=== PATIENT | female | born 1970 | race Caucasian/White ===

== ENCOUNTER 2016-10-25 11:39 | Inpatient (IN) | payer MEDICAID, OTHER ==
[~2016-10-25] VITALS: Ht 167.6 cm; Wt 62.0 kg
[~2016-10-25 11:39] MED LIST: DIVA500T35 PO; RISP1 PO
[2016-10-25 12:02] LABS: BASOPHILS # (AUTO) 0.04 K/uL (0.00-0.20); BASOPHILS % (AUTO) 0.8 % (0.0-2.0); EOSINOPHILS # (AUTO) 0.02 K/uL (0.00-0.70); HEMATOCRIT 38.3 % (36-46); HEMOGLOBIN 13.2 g/dL (12.0-16.0); LYMPHOCYTES # (AUTO) 1.3 K/uL (1.0-4.8); LYMPHOCYTES % (AUTO) 23.6 % (22.0-44.0); MEAN CORPUSCULAR HEMOGLOBIN 30.8 pg (26.0-34.0); MEAN CORPUSCULAR HGB CONC 34.4 G/dL (31.0-37.0); MEAN CORPUSCULAR VOLUME 89 fL (80-100); MONOCYTES # (AUTO) 0.5 K/uL (0.1-1.0); NEUTROPHILS # (AUTO) 3.8 K/uL (1.8-7.7); NEUTROPHILS % (AUTO) 67.3 % (40.0-70.0); PLATELET COUNT (AUTO) 229 K/uL (150-450); RED BLOOD CELL COUNT(AUTO) 4.28 MIL/uL (4.00-5.20); RED CELL DISTRIBUTION WIDTH 12.5 % (11.5-14.5); WHITE BLOOD COUNT (AUTO) 5.6 K/uL (4.5-11.0)
[2016-10-25 12:25] LABS: ANION GAP 8 mmol/L (8-16); CALCIUM, TOTAL 8.8 mg/dL (8.8-10.5); CARBON DIOXIDE 28 mmol/L (22-29); CHLORIDE 106 mmol/L (98-107); CREATININE 0.97 mg/dL (0.60-1.30); GLOMERULAR FILTR. RATE CALC > 60 mL/min (>60); POTASSIUM 4.4 mmol/L (3.5-5.1); SODIUM SERUM 142 mmol/L (136-145); UREA NITROGEN, BLOOD 11 mg/dL (7-18)
[2016-10-25 12:31] LABS: ALANINE AMINOTRANSFERASE 34 U/L (12-78); ASPARTATE AMINOTRANSFERASE 25 U/L (15-37); BILIRUBIN,TOTAL 0.5 mg/dL (0.1-1.0); TOTAL PROTEIN, SERUM 7.3 g/dL (6.4-8.2)
[2016-10-25 12:44] LABS: VALPROIC ACID < 3 mcg/mL (50-100)
[2016-10-25] MEDS ORDERED: ZOLPIDEM TARTRATE 10 MG TABLET PO PRN (13:30)
[2016-10-25] MEDS ORDERED: LORazepam 1 MG TABLET PO ONE (15:15)
[2016-10-25] MEDS ORDERED: INFLUENZA VIRUS VACCINE QVS 2016-17 (3YR+)/PF 60 MCG/0.5 ML SYRINGE IM ONE (17:00)
[2016-10-25] MEDS: HALOPERIDOL 5 MG TABLET PO PRN (17:09)
[2016-10-25] MEDS: LORazepam 2 MG TABLET PO PRN (17:09)
[2016-10-26 08:01] VITALS: BP 112/55
[2016-10-26] MEDS: NICOTINE 14 MG/24 HOUR PATCH TD SCH (09:00)
[2016-10-26 16:08] VITALS: BP 109/97
[2016-10-26] MEDS: RisperiDONE 1 MG TABLET PO SCH (16:47)
[2016-10-26] MEDS: HALOPERIDOL 5 MG TABLET PO PRN (16:47)
[2016-10-26] MEDS: LORazepam 2 MG TABLET PO PRN (16:47)
[2016-10-26] MEDS: DIVALPROEX SODIUM 500 MG DR TABLET PO SCH (20:54)
[2016-10-27] MEDS: NICOTINE 14 MG/24 HOUR PATCH TD SCH (09:00)
[2016-10-27] MEDS: RisperiDONE 1 MG TABLET PO SCH ×2 (09:19→16:03)
[2016-10-27] MEDS: LORazepam 2 MG TABLET PO PRN (16:03)
[2016-10-27 16:20] VITALS: BP 106/61
[2016-10-27] MEDS: DIVALPROEX SODIUM 500 MG DR TABLET PO SCH (20:08)
[2016-10-28 06:42] VITALS: BP 114/68
[2016-10-28 08:00] VITALS: BP 118/64
[2016-10-28] MEDS: NICOTINE 14 MG/24 HOUR PATCH TD SCH (09:00)
[2016-10-28] MEDS: RisperiDONE 1 MG TABLET PO SCH ×2 (09:15→16:02)
[2016-10-28 16:07] VITALS: BP 119/65
[2016-10-28] MEDS: DIVALPROEX SODIUM 500 MG DR TABLET PO SCH (20:10)
[2016-10-29 00:04] VITALS: BP 106/63
[2016-10-29 08:09] VITALS: BP 96/64
[2016-10-29] MEDS: NICOTINE 14 MG/24 HOUR PATCH TD SCH (09:33)
[2016-10-29] MEDS: RisperiDONE 1 MG TABLET PO SCH ×2 (09:33→16:10)
[2016-10-29 16:28] VITALS: BP 110/74
== END 2016-10-29 19:04 | disposition home or self-care (01) | DRG 750 ==
LOC: EMS 11:43 → B3A 15:31
PROVIDERS: ADMIT Psychiatry & Neurology Psychiatry; ATTEND Psychiatry & Neurology Psychiatry
DX: F20.0 Paranoid schizophrenia (principal); R45.851 Suicidal ideations; Z59.0 Homelessness; F32.9 Major depressive disorder, single episode, unspecified; F15.10 Other stimulant abuse, uncomplicated; F17.210 Nicotine dependence, cigarettes, uncomplicated; F10.10 Alcohol abuse, uncomplicated; Z79.899 Other long term (current) drug therapy; Z71.41 Alcohol abuse counseling and surveillance of alcoholic; Z71.6 Tobacco abuse counseling; Z71.51 Drug abuse counseling and surveillance of drug abuser; Z28.21 Immunization not carried out because of patient refusal
CPT/HCPCS: 99285; 99406; G0480

== ENCOUNTER 2017-01-01 11:05 | Emergency (ER) | payer MEDICAID, OTHER ==
[~2017-01-01] VITALS: Ht 162.6 cm; Wt 59.0 kg
[2017-01-01 11:27] VITALS: BP 116/67
[2017-01-01 11:29] LABS: BASOPHILS # (AUTO) 0.06 K/uL (0.00-0.20); BASOPHILS % (AUTO) 0.8 % (0.0-2.0); EOSINOPHILS # (AUTO) 0.02 K/uL (0.00-0.70); EOSINOPHILS % (AUTO) 0.31 % (1.0-6.0); HEMOGLOBIN 12.9 g/dL (12.0-16.0); LYMPHOCYTES # (AUTO) 1.7 K/uL (1.0-4.8); MEAN CORPUSCULAR HEMOGLOBIN 31.5 pg (26.0-34.0); MEAN CORPUSCULAR VOLUME 93 fL (80-100); MONOCYTES # (AUTO) 0.6 K/uL (0.1-1.0); MONOCYTES % (AUTO) 7.9 % (2.0-9.0); NEUTROPHILS # (AUTO) 4.9 K/uL (1.8-7.7); PLATELET COUNT (AUTO) 242 K/uL (150-450); WHITE BLOOD COUNT (AUTO) 7.3 K/uL (4.5-11.0)
[2017-01-01] MEDS ORDERED: LORazepam 2 MG TABLET PO ONE (11:30)
[2017-01-01 11:45] LABS: ANION GAP 9 mmol/L (8-16); CALCIUM, TOTAL 8.7 mg/dL (8.8-10.5); CARBON DIOXIDE 28 mmol/L (22-29); CHLORIDE 104 mmol/L (98-107); CREATININE 0.92 mg/dL (0.60-1.30); GLOMERULAR FILTR. RATE CALC > 60 mL/min (>60); POTASSIUM 3.6 mmol/L (3.5-5.1); SODIUM SERUM 141 mmol/L (136-145); UREA NITROGEN, BLOOD 15 mg/dL (7-18)
[2017-01-01 11:51] LABS: ALANINE AMINOTRANSFERASE 26 U/L (12-78); ALBUMIN 4.2 g/dL (3.4-5.0); ASPARTATE AMINOTRANSFERASE 20 U/L (15-37); BILIRUBIN,TOTAL 0.5 mg/dL (0.1-1.0); TOTAL PROTEIN, SERUM 7.3 g/dL (6.4-8.2)
[2017-01-01] MEDS: VALPROIC ACID 250 MG CAPSULE PO ONE ×2 (11:57→12:04)
[2017-01-01 12:05] LABS: VALPROIC ACID 3 mcg/mL (50-100)
[2017-01-01] MEDS ORDERED: DIVALPROEX SODIUM 250 MG DR TABLET PO ONE (12:15)
== END 2017-01-01 12:09 | disposition home or self-care (01) ==
LOC: EMS 11:10
DX: F25.9 Schizoaffective disorder, unspecified (principal); F30.9 Manic episode, unspecified; F31.9 Bipolar disorder, unspecified; F17.210 Nicotine dependence, cigarettes, uncomplicated; F15.90 Other stimulant use, unspecified, uncomplicated
CPT/HCPCS: 36415; 80053; 80164; 80307; 85025; 99285; G0480

== ENCOUNTER 2019-04-17 19:27 | Emergency (ER) | payer OTHER ==
[~2019-04-17] VITALS: Ht 162.6 cm; Wt 59.1 kg
[~2019-04-17 19:27] MED LIST changes: +DIVA-78 PO; -DIVA500T35 PO
[2019-04-17 20:03] LABS: BASOPHILS % (AUTO) 1.4 % (0.0-2.0); EOSINOPHILS % (AUTO) 2.2 % (1.0-6.0); HEMATOCRIT 39.4 % (36-46); HEMOGLOBIN 13.8 g/dL (12.0-16.0); LYMPHOCYTES # (AUTO) 1.9 K/uL (1.0-4.8); LYMPHOCYTES % (AUTO) 35.6 % (22.0-44.0); MEAN CORPUSCULAR HEMOGLOBIN 31.4 pg (26.0-34.0); MEAN CORPUSCULAR HGB CONC 35.1 G/dL (31.0-37.0); MEAN CORPUSCULAR VOLUME 90 fL (80-100); MONOCYTES # (AUTO) 0.5 K/uL (0.1-1.0); MONOCYTES % (AUTO) 9.5 % (2.0-9.0); NEUTROPHILS # (AUTO) 2.7 K/uL (1.8-7.7); NEUTROPHILS % (AUTO) 51.3 % (40.0-70.0); PLATELET COUNT (AUTO) 241 K/uL (150-450); RED CELL DISTRIBUTION WIDTH 12.5 % (11.5-14.5)
[2019-04-17 20:15] LABS: ANION GAP 9 mmol/L (8-16); CALCIUM, TOTAL 9.2 mg/dL (8.8-10.5); CARBON DIOXIDE 27 mmol/L (22-29); CHLORIDE 101 mmol/L (98-107); CREATININE 1.13 mg/dL (0.60-1.30); GLOMERULAR FILTR. RATE CALC 51 mL/min (>60); GLUCOSE,RANDOM 89 mg/dL (70-110); POTASSIUM 3.8 mmol/L (3.5-5.1); SODIUM SERUM 137 mmol/L (136-145); UREA NITROGEN, BLOOD 17 mg/dL (7-18)
[2019-04-17 20:18] LABS: APPEARANCE,URINE CLOUDY (CLEAR); GLUCOSE, URINE (UA) NEGATIVE (NEGATIVE); KETONES,URINE NEGATIVE (NEGATIVE); LEUKOCYTE ESTERASE ,URINE NEGATIVE (NEGATIVE); NITRATE,URINE NEGATIVE (NEGATIVE); OCCULT BLOOD,URINE NEGATIVE (NEGATIVE); PROTEIN,URINE NEGATIVE (NEGATIVE); UROBILINOGEN,URINE 0.2 mg/dL (<=1.0)
[2019-04-17 20:20] LABS: AMPHET/METH SCREEN,URINE POSITIVE (NEGATIVE); BARBITURATE SCREEN, URINE NEGATIVE (NEGATIVE); BENZODIAZEPINES SCREEN,URINE NEGATIVE (NEGATIVE); CANNABINOID SCREEN,URINE NEGATIVE (NEGATIVE); COCAINE SCREEN,URINE NEGATIVE (NEGATIVE); METHADONE SCREEN, URINE NEGATIVE (NEGATIVE); OPIATE SCREEN,URINE NEGATIVE (NEGATIVE)
[2019-04-17 20:21] LABS: PHENCYCLIDINE SCREEN,URINE NEGATIVE (NEGATIVE)
[2019-04-17 20:29] LABS: BILIRUBIN,URINE PRELIM. POSITIVE (NEGATIVE)
[2019-04-17 20:36] LABS: ALANINE AMINOTRANSFERASE 13 U/L (12-78); ALBUMIN 3.9 g/dL (3.4-5.0); ALKALINE PHOSPHATASE 49 U/L (46-116); ASPARTATE AMINOTRANSFERASE 17 U/L (15-37); BILIRUBIN,TOTAL 0.4 mg/dL (0.1-1.0); HCG,QUANTITATIVE 3 mIU/mL (0-6)
[2019-04-17 20:41] LABS: BACTERIA,URINE Few /HPF (None Seen); RBC,URINE None Seen /HPF (0-2); WBC,URINE 0-2 /HPF (0-5)
[2019-04-17 20:42] LABS: CALCIUM OXALATE CRYSTALS,UR Many /LPF (None Seen); SQUAMOUS EPITHELIAL CELL,UR Few /LPF (None Seen)
[2019-04-17 20:43] LABS: MUCUS,URINE Few LPF (None Seen)
[2019-04-18 04:00] VITALS: BP 131/67
== END 2019-04-18 04:20 | disposition home or self-care (01) ==
LOC: EMS 19:29
DX: S00.81XA Abrasion of other part of head, initial encounter (principal); S60.511A Abrasion of right hand, initial encounter; F31.9 Bipolar disorder, unspecified; F20.9 Schizophrenia, unspecified; F17.210 Nicotine dependence, cigarettes, uncomplicated; F15.90 Other stimulant use, unspecified, uncomplicated; Z59.0 Homelessness; W26.8XXA Contact with other sharp object(s), not elsewhere classified, initial encounter; Y93.89 Activity, other specified; Y92.89 Other specified places as the place of occurrence of the external cause; Y99.8 Other external cause status
CPT/HCPCS: 36415; 80053; 80307; 81001; 84702; 85025; 99285; 99406; G0480

== ENCOUNTER 2020-10-22 18:34 | Inpatient (IN) | payer MEDICAID, OTHER ==
[~2020-10-22] VITALS: Ht 160 cm; Wt 62.2 kg
[2020-10-22 20:08] LABS: EOSINOPHILS % (AUTO) 1.6 % (1.0-6.0); HEMATOCRIT 39.1 % (36-46); HEMOGLOBIN 13.1 g/dL (12.0-16.0); LYMPHOCYTES # (AUTO) 2.2 K/uL (1.0-4.8); LYMPHOCYTES % (AUTO) 31.2 % (22.0-44.0); MEAN CORPUSCULAR HGB CONC 33.5 G/dL (31.0-37.0); MEAN CORPUSCULAR VOLUME 90 fL (80-100); MONOCYTES # (AUTO) 0.6 K/uL (0.1-1.0); MONOCYTES % (AUTO) 8.2 % (2.0-9.0); NEUTROPHILS # (AUTO) 4.2 K/uL (1.8-7.7); PLATELET COUNT (AUTO) 248 K/uL (150-450); RED BLOOD CELL COUNT(AUTO) 4.37 MIL/uL (4.00-5.20); RED CELL DISTRIBUTION WIDTH 12.5 % (11.5-14.5)
[2020-10-22 20:23] LABS: ANION GAP 8 mmol/L (8-16); CALCIUM, TOTAL 9.2 mg/dL (8.8-10.5); CARBON DIOXIDE 30 mmol/L (22-29); CHLORIDE 103 mmol/L (98-107); CREATININE 0.96 mg/dL (0.60-1.30); GLOMERULAR FILTR. RATE CALC > 60 mL/min (>60); GLUCOSE,RANDOM 130 mg/dL (70-110); POTASSIUM 3.9 mmol/L (3.5-5.1); SODIUM SERUM 141 mmol/L (136-145); UREA NITROGEN, BLOOD 23 mg/dL (7-18)
[2020-10-22 20:29] LABS: APPEARANCE,URINE CLOUDY (CLEAR); GLUCOSE, URINE (UA) NEGATIVE (NEGATIVE); KETONES,URINE NEGATIVE (NEGATIVE); LEUKOCYTE ESTERASE ,URINE TRACE (NEGATIVE); NITRATE,URINE NEGATIVE (NEGATIVE); OCCULT BLOOD,URINE NEGATIVE (NEGATIVE); PH,URINE 5.5 (5.0-8.0); PROTEIN,URINE NEGATIVE (NEGATIVE); UROBILINOGEN,URINE 0.2 mg/dL (<=1.0)
[2020-10-22] MEDS ORDERED: OLANZapine 5 MG RAPDIS TABLET PO PRN (20:30)
[2020-10-22 20:31] LABS: ALANINE AMINOTRANSFERASE 37 U/L (12-78); ALBUMIN 3.5 g/dL (3.4-5.0); ALKALINE PHOSPHATASE 63 U/L (46-116); ASPARTATE AMINOTRANSFERASE 26 U/L (15-37); BILIRUBIN,TOTAL 0.2 mg/dL (0.1-1.0); TOTAL PROTEIN, SERUM 6.8 g/dL (6.4-8.2)
[2020-10-22 20:32] LABS: BILIRUBIN,URINE PRELIM. POSITIVE (NEGATIVE)
[2020-10-22 20:35] LABS: AMPHET/METH SCREEN,URINE POSITIVE (NEGATIVE); BARBITURATE SCREEN, URINE NEGATIVE (NEGATIVE); BENZODIAZEPINES SCREEN,URINE NEGATIVE (NEGATIVE); CANNABINOID SCREEN,URINE NEGATIVE (NEGATIVE); COCAINE SCREEN,URINE NEGATIVE (NEGATIVE); METHADONE SCREEN, URINE NEGATIVE (NEGATIVE); OPIATE SCREEN,URINE NEGATIVE (NEGATIVE)
[2020-10-22 20:36] LABS: PHENCYCLIDINE SCREEN,URINE NEGATIVE (NEGATIVE)
[2020-10-22 21:00] LABS: BACTERIA,URINE Few /HPF (None Seen); RBC,URINE 0-2 /HPF (0-2); SQUAMOUS EPITHELIAL CELL,UR Moderate /LPF (None Seen)
[2020-10-22 21:01] LABS: CALCIUM OXALATE CRYSTALS,UR Many /LPF (None Seen)
[2020-10-22 21:56] LABS: COVID AG,FIA SOURCE NASOPHARYNGEAL
[2020-10-23 01:15] VITALS: BP 132/80
[2020-10-23] MEDS: LORazepam 2 MG TABLET PO PRN ×2 (01:32→10:09)
[2020-10-23] MEDS: ZOLPIDEM TARTRATE 10 MG TABLET PO PRN (01:32)
[2020-10-23] MEDS ORDERED: INFLUENZA VIRUS VACCINE QVS 2020-21 (6MO+)/PF 60 MCG/0.5 ML SYRINGE IM ONE (02:00)
[2020-10-23 08:11] VITALS: BP 118/69
[2020-10-23] MEDS ORDERED: CloNIDine HCL 0.1 MG TABLET PO PRN (08:15)
[2020-10-23] MEDS ORDERED: IBUPROFEN 400 MG TABLET PO PRN (08:15)
[2020-10-23] MEDS ORDERED: PETROLATUM,WHITE 28 GM JELLY TP PRN (08:15)
[2020-10-23] MEDS ORDERED: ACETAMINOPHEN 325 MG TABLET PO PRN (08:15)
[2020-10-23] MEDS ORDERED: ALBUTEROL SULFATE HFA 90 MCG/PUFF 8 GM INHALER IH PRN (08:15)
[2020-10-23] MEDS ORDERED: ONDANSETRON HCL 4 MG TABLET PO PRN (08:15)
[2020-10-23] MEDS ORDERED: GuaiFENesin/D-METHORPHAN [SUGAR-FREE] 200-20MG/10 ML SYRUP UDCUP PO PRN (08:15)
[2020-10-23] MEDS ORDERED: MAG HYDROX/AL HYDROX/SIMETH ES 30 ML SUSPENSION UDCUP PO PRN (08:15)
[2020-10-23] MEDS ORDERED: DOCUSATE SODIUM 100 MG CAPSULE PO PRN (08:15)
[2020-10-23] MEDS ORDERED: MAGNESIUM HYDROXIDE SUSPENSION 30 ML UDCUP PO PRN (08:15)
[2020-10-23] MEDS ORDERED: LOPERAMIDE HCL 2 MG CAPSULE PO PRN (08:15)
[2020-10-23 08:46] LABS: CHOL/HDL RATIO 2.7 (3.9-5.7)
[2020-10-23] MEDS ORDERED: LORazepam 2 MG/ML VIAL IM ONE (11:30)
[2020-10-23] MEDS ORDERED: DiphenhydrAMINE HCL 50 MG/ML VIAL IM ONE (11:30)
[2020-10-23] MEDS ORDERED: HALOPERIDOL LACTATE 5 MG/ML VIAL IM ONE (11:30)
[2020-10-23] MEDS ORDERED: LORazepam 2 MG/ML VIAL ONE (11:32)
[2020-10-23] MEDS ORDERED: DiphenhydrAMINE HCL 50 MG/ML VIAL ONE (11:33)
[2020-10-23] MEDS ORDERED: HALOPERIDOL LACTATE 5 MG/ML VIAL ONE (11:33)
[2020-10-23 16:01] VITALS: BP 110/66
[2020-10-23] MEDS: RisperiDONE 1 MG TABLET PO SCH (20:31)
[2020-10-23] MEDS: DIVALPROEX SODIUM 500 MG DR TABLET PO SCH (20:31)
[2020-10-24 00:07] VITALS: BP 106/68
[2020-10-24 08:07] VITALS: BP 142/72
[2020-10-24] MEDS: RisperiDONE 1 MG TABLET PO SCH ×2 (08:30→20:35)
[2020-10-24] MEDS: DIVALPROEX SODIUM 500 MG DR TABLET PO SCH ×2 (08:30→20:35)
[2020-10-24] MEDS: LORazepam 2 MG TABLET PO PRN (08:30)
[2020-10-24 16:04] VITALS: BP 110/66
[2020-10-24] MEDS: ZOLPIDEM TARTRATE 10 MG TABLET PO PRN (20:40)
[2020-10-25 08:12] VITALS: BP 107/61
[2020-10-25] MEDS: DIVALPROEX SODIUM 500 MG DR TABLET PO SCH ×2 (08:15→21:38)
[2020-10-25] MEDS: LORazepam 2 MG TABLET PO PRN ×2 (08:15→14:20)
[2020-10-25] MEDS: RisperiDONE 1 MG TABLET PO SCH ×2 (08:15→21:38)
[2020-10-25 16:16] VITALS: BP 114/74
[2020-10-26 00:26] VITALS: BP 105/70
[2020-10-26 08:06] VITALS: BP 104/62
[2020-10-26] MEDS: DIVALPROEX SODIUM 500 MG DR TABLET PO SCH ×2 (08:06→20:40)
[2020-10-26] MEDS: RisperiDONE 1 MG TABLET PO SCH ×2 (08:06→20:40)
[2020-10-26 08:19] VITALS: BP 110/70
[2020-10-26] MEDS: LORazepam 2 MG TABLET PO PRN (08:19)
[2020-10-26 16:18] VITALS: BP 110/69
[2020-10-26] MEDS: ZOLPIDEM TARTRATE 10 MG TABLET PO PRN (23:52)
[2020-10-27 02:00] VITALS: BP 102/75
[2020-10-27] MEDS: LORazepam 2 MG TABLET PO PRN ×2 (06:12→14:33)
[2020-10-27] MEDS: DIVALPROEX SODIUM 500 MG DR TABLET PO SCH ×2 (07:58→20:01)
[2020-10-27] MEDS: RisperiDONE 1 MG TABLET PO SCH ×2 (07:58→20:01)
[2020-10-27 08:32] VITALS: BP 144/76
[2020-10-27] MEDS: NICOTINE 14 MG/24 HOUR PATCH TD PRN (09:44)
[2020-10-27 16:02] VITALS: BP 123/78
[2020-10-28 01:30] VITALS: BP 118/66
[2020-10-28] MEDS: DIVALPROEX SODIUM 500 MG DR TABLET PO SCH ×2 (08:01→20:38)
[2020-10-28] MEDS: LORazepam 2 MG TABLET PO PRN ×2 (08:01→16:18)
[2020-10-28] MEDS: RisperiDONE 1 MG TABLET PO SCH ×2 (08:01→20:38)
[2020-10-28] MEDS: NICOTINE 14 MG/24 HOUR PATCH TD PRN (08:05)
[2020-10-28 08:08] VITALS: BP 130/104
[2020-10-28 16:10] VITALS: BP 108/64
[2020-10-28] MEDS: ZOLPIDEM TARTRATE 10 MG TABLET PO PRN (21:21)
[2020-10-29 04:15] VITALS: BP 106/61
[2020-10-29 08:13] VITALS: BP 139/66
[2020-10-29] MEDS: DIVALPROEX SODIUM 500 MG DR TABLET PO SCH ×2 (08:48→20:56)
[2020-10-29] MEDS: RisperiDONE 1 MG TABLET PO SCH ×2 (08:48→20:56)
[2020-10-29] MEDS: LORazepam 2 MG TABLET PO PRN ×2 (08:49→13:03)
[2020-10-29] MEDS: NICOTINE 14 MG/24 HOUR PATCH TD PRN (12:45)
[2020-10-29 16:50] VITALS: BP 122/75
[2020-10-29] MEDS: ZOLPIDEM TARTRATE 10 MG TABLET PO PRN (21:26)
[2020-10-30 00:18] VITALS: BP 118/76
[2020-10-30] MEDS ORDERED: RISP0.5T61 PO (03:13)
[2020-10-30] MEDS ORDERED: DIVA-112 PO (03:13)
== END 2020-10-30 07:30 | disposition home or self-care (01) | DRG 750 ==
LOC: EMS 18:36 → B3A 22:00
DX: F25.0 Schizoaffective disorder, bipolar type (principal); F10.10 Alcohol abuse, uncomplicated; F15.10 Other stimulant abuse, uncomplicated; N39.0 Urinary tract infection, site not specified; R45.851 Suicidal ideations; Z59.0 Homelessness; Z79.899 Other long term (current) drug therapy; Z87.891 Personal history of nicotine dependence; Z20.822 Contact with and (suspected) exposure to COVID-19; Z88.8 Allergy status to other drugs, medicaments and biological substances; Z88.5 Allergy status to narcotic agent; Z91.013 Allergy to seafood
CPT/HCPCS: 87086; 87426; 99285; G0480; J1200; J1630; J2060

== ENCOUNTER 2020-12-16 18:17 | Inpatient (IN) | payer MEDICAID, OTHER ==
[~2020-12-16] VITALS: Ht 165.1 cm; Wt 63.5 kg
[~2020-12-16 18:17] MED LIST changes: +DIVA-112 PO; -DIVA-78 PO; +RISP0.5T61 PO; -RISP1 PO
[2020-12-16 19:27] LABS: BASOPHILS % (AUTO) 1.2 % (0.0-2.0); EOSINOPHILS % (AUTO) 1.1 % (1.0-6.0); HEMATOCRIT 40.5 % (36-46); HEMOGLOBIN 13.7 g/dL (12.0-16.0); LYMPHOCYTES # (AUTO) 2.1 K/uL (1.0-4.8); LYMPHOCYTES % (AUTO) 32.5 % (22.0-44.0); MEAN CORPUSCULAR HEMOGLOBIN 30.3 pg (26.0-34.0); MEAN CORPUSCULAR HGB CONC 33.8 G/dL (31.0-37.0); MEAN CORPUSCULAR VOLUME 89 fL (80-100); MONOCYTES # (AUTO) 0.5 K/uL (0.1-1.0); MONOCYTES % (AUTO) 7.3 % (2.0-9.0); NEUTROPHILS # (AUTO) 3.8 K/uL (1.8-7.7); NEUTROPHILS % (AUTO) 57.9 % (40.0-70.0); PLATELET COUNT (AUTO) 291 K/uL (150-450); RED BLOOD CELL COUNT(AUTO) 4.53 MIL/uL (4.00-5.20)
[2020-12-16 19:37] LABS: ANION GAP 9 mmol/L (8-16); CALCIUM, TOTAL 9.5 mg/dL (8.8-10.5); CARBON DIOXIDE 28 mmol/L (22-29); CHLORIDE 105 mmol/L (98-107); CREATININE 0.92 mg/dL (0.60-1.30); GLOMERULAR FILTR. RATE CALC > 60 mL/min (>60); GLUCOSE,RANDOM 97 mg/dL (70-110); POTASSIUM 4.4 mmol/L (3.5-5.1); SODIUM SERUM 142 mmol/L (136-145); UREA NITROGEN, BLOOD 20 mg/dL (7-18)
[2020-12-16 19:44] LABS: ALANINE AMINOTRANSFERASE 29 U/L (12-78); ALKALINE PHOSPHATASE 56 U/L (46-116); ASPARTATE AMINOTRANSFERASE 14 U/L (15-37); BILIRUBIN,TOTAL 0.6 mg/dL (0.1-1.0); TOTAL PROTEIN, SERUM 7.3 g/dL (6.4-8.2)
[2020-12-16 19:45] LABS: AMPHET/METH SCREEN,URINE POSITIVE (NEGATIVE); BARBITURATE SCREEN, URINE NEGATIVE (NEGATIVE); BENZODIAZEPINES SCREEN,URINE NEGATIVE (NEGATIVE); CANNABINOID SCREEN,URINE NEGATIVE (NEGATIVE); COCAINE SCREEN,URINE NEGATIVE (NEGATIVE); METHADONE SCREEN, URINE NEGATIVE (NEGATIVE); OPIATE SCREEN,URINE NEGATIVE (NEGATIVE)
[2020-12-16] MEDS ORDERED: PERTUSS(ACELL),DIPH,TET VAC/PF 0.5 ML SYRINGE IM. ONE (19:45)
[2020-12-16 19:47] LABS: PHENCYCLIDINE SCREEN,URINE NEGATIVE (NEGATIVE)
[2020-12-16] MEDS ORDERED: ZOLPIDEM TARTRATE 10 MG TABLET PO PRN (20:15)
[2020-12-16] MEDS ORDERED: OLANZapine 5 MG RAPDIS TABLET PO PRN (20:15)
[2020-12-16 21:36] LABS: COVID AG,FIA SOURCE NASOPHARYNGEAL
[2020-12-17] MEDS ORDERED: DiphenhydrAMINE HCL 50 MG/ML VIAL IM ONE (01:30)
[2020-12-17] MEDS ORDERED: HALOPERIDOL LACTATE 5 MG/ML VIAL IM ONE (01:30)
[2020-12-17] MEDS ORDERED: LORazepam 2 MG/ML VIAL IM ONE (01:30)
[2020-12-17 01:47] VITALS: BP 114/71
[2020-12-17] MEDS ORDERED: PROMETHAZINE HCL 25 MG TABLET PO PRN (07:45)
[2020-12-17] MEDS ORDERED: GuaiFENesin/D-METHORPHAN [SUGAR-FREE] 200-20MG/10 ML SYRUP UDCUP PO PRN (07:45)
[2020-12-17] MEDS ORDERED: MAGNESIUM HYDROXIDE SUSPENSION 30 ML UDCUP PO PRN (07:45)
[2020-12-17] MEDS ORDERED: TUBERCULIN, PURIFIED PROTEIN DERIVATIVE 5 TU/0.1 ML SYRINGE ID ONE (07:45)
[2020-12-17] MEDS ORDERED: ACETAMINOPHEN 325 MG TABLET PO PRN (07:45)
[2020-12-17] MEDS ORDERED: HydrOXYzine PAMOATE 50 MG CAPSULE PO PRN (07:45)
[2020-12-17] MEDS ORDERED: LOPERAMIDE HCL 2 MG CAPSULE PO PRN (07:45)
[2020-12-17] MEDS ORDERED: MAG HYDROX/AL HYDROX/SIMETH ES 30 ML SUSPENSION UDCUP PO PRN (07:45)
[2020-12-17] MEDS: FOLIC ACID 1 MG TABLET PO SCH (09:00)
[2020-12-17] MEDS: MULTIVITAMINS WITH MINERALS, THERAPEUTIC TABLET PO SCH (09:00)
[2020-12-17] MEDS: NALTREXONE HCL 50 MG TABLET PO SCH (09:00)
[2020-12-17] MEDS: THIAMINE 100 MG TABLET PO SCH ×2 (09:00→16:13)
[2020-12-17] MEDS: OMEGA-3/DHA/EPA/FISH OIL 1,000 MG CAPSULE PO SCH (09:00)
[2020-12-17 16:19] VITALS: BP 134/66
[2020-12-17] MEDS: DIVALPROEX SODIUM 500 MG ER TABLET PO SCH (20:17)
[2020-12-17] MEDS: MELATONIN 5 MG TABLET PO SCH (20:17)
[2020-12-17] MEDS ORDERED: OLANZapine 5 MG RAPDIS TABLET PO SCH (21:00)
[2020-12-18 02:04] VITALS: BP 126/69
[2020-12-18 08:14] VITALS: BP 120/74
[2020-12-18] MEDS: OMEGA-3/DHA/EPA/FISH OIL 1,000 MG CAPSULE PO SCH (08:23)
[2020-12-18] MEDS: MULTIVITAMINS WITH MINERALS, THERAPEUTIC TABLET PO SCH (08:23)
[2020-12-18] MEDS: FOLIC ACID 1 MG TABLET PO SCH (08:23)
[2020-12-18] MEDS: NALTREXONE HCL 50 MG TABLET PO SCH (08:23)
[2020-12-18] MEDS: THIAMINE 100 MG TABLET PO SCH ×2 (08:23→16:13)
[2020-12-18 16:05] VITALS: BP 122/71
[2020-12-18] MEDS: DIVALPROEX SODIUM 500 MG ER TABLET PO SCH (20:12)
[2020-12-18] MEDS: MELATONIN 5 MG TABLET PO SCH (20:12)
[2020-12-18] MEDS ORDERED: RisperiDONE 3 MG TABLET PO SCH (21:00)
[2020-12-19 02:38] VITALS: BP 116/76
[2020-12-19 08:12] LABS: CHOL/HDL RATIO 2.5 (3.9-5.7); FREE T4 (FREE THYROXINE) 1.31 ng/dL (0.76-1.46); THYROID STIMULATING HORMONE 3.08 uIU/mL (0.36-3.74)
[2020-12-19 08:15] VITALS: BP 108/60
[2020-12-19 08:20] LABS: HEMOGLOBIN A1C 5.4 % (3.8-5.6)
[2020-12-19] MEDS: NICOTINE 21 MG/24 HOUR PATCH TD SCH (08:26)
[2020-12-19] MEDS: FOLIC ACID 1 MG TABLET PO SCH (08:28)
[2020-12-19] MEDS: MULTIVITAMINS WITH MINERALS, THERAPEUTIC TABLET PO SCH (08:28)
[2020-12-19] MEDS: LORazepam 2 MG TABLET PO PRN ×2 (08:28→15:33)
[2020-12-19] MEDS: THIAMINE 100 MG TABLET PO SCH ×2 (08:28→15:33)
[2020-12-19] MEDS: OMEGA-3/DHA/EPA/FISH OIL 1,000 MG CAPSULE PO SCH (08:28)
[2020-12-19] MEDS: NALTREXONE HCL 50 MG TABLET PO SCH (08:28)
[2020-12-19 16:11] VITALS: BP 117/71
[2020-12-19] MEDS: MELATONIN 5 MG TABLET PO SCH (20:10)
[2020-12-19] MEDS: DIVALPROEX SODIUM 500 MG ER TABLET PO SCH (20:10)
[2020-12-19] MEDS ORDERED: RisperiDONE 2 MG TABLET PO SCH (21:00)
[2020-12-20 00:21] VITALS: BP 129/81
[2020-12-20 08:18] VITALS: BP 104/67
[2020-12-20] MEDS: RisperiDONE 1 MG TABLET PO PRN (08:53)
[2020-12-20] MEDS: FOLIC ACID 1 MG TABLET PO SCH (08:54)
[2020-12-20] MEDS: MULTIVITAMINS WITH MINERALS, THERAPEUTIC TABLET PO SCH (08:54)
[2020-12-20] MEDS: LORazepam 2 MG TABLET PO PRN ×2 (08:54→16:17)
[2020-12-20] MEDS: NICOTINE 21 MG/24 HOUR PATCH TD SCH (08:55)
[2020-12-20] MEDS: NALTREXONE HCL 50 MG TABLET PO SCH (09:52)
[2020-12-20] MEDS: THIAMINE 100 MG TABLET PO SCH ×2 (09:52→16:14)
[2020-12-20] MEDS: OMEGA-3/DHA/EPA/FISH OIL 1,000 MG CAPSULE PO SCH (09:52)
[2020-12-20 16:10] VITALS: BP 108/73
[2020-12-20] MEDS: MELATONIN 5 MG TABLET PO SCH (20:38)
[2020-12-20] MEDS: DIVALPROEX SODIUM 500 MG ER TABLET PO SCH (20:38)
[2020-12-20] MEDS: RisperiDONE 2 MG TABLET PO SCH (20:39)
[2020-12-21 00:04] VITALS: BP 101/76
[2020-12-21 08:13] VITALS: BP 107/72
[2020-12-21] MEDS: THIAMINE 100 MG TABLET PO SCH ×2 (08:24→16:04)
[2020-12-21] MEDS: MULTIVITAMINS WITH MINERALS, THERAPEUTIC TABLET PO SCH (08:24)
[2020-12-21] MEDS: FOLIC ACID 1 MG TABLET PO SCH (08:24)
[2020-12-21] MEDS: OMEGA-3/DHA/EPA/FISH OIL 1,000 MG CAPSULE PO SCH (08:24)
[2020-12-21] MEDS: NALTREXONE HCL 50 MG TABLET PO SCH (08:24)
[2020-12-21] MEDS: NICOTINE 21 MG/24 HOUR PATCH TD SCH (08:25)
[2020-12-21 16:08] VITALS: BP 108/69
[2020-12-21] MEDS: LORazepam 2 MG TABLET PO PRN (16:15)
[2020-12-21] MEDS: MELATONIN 5 MG TABLET PO SCH (20:12)
[2020-12-21] MEDS: DIVALPROEX SODIUM 500 MG ER TABLET PO SCH (20:12)
[2020-12-21] MEDS: RisperiDONE 2 MG TABLET PO SCH (20:13)
[2020-12-22 05:52] VITALS: BP 106/66
[2020-12-22 08:29] VITALS: BP 110/60
[2020-12-22] MEDS: FOLIC ACID 1 MG TABLET PO SCH (08:58)
[2020-12-22] MEDS: MULTIVITAMINS WITH MINERALS, THERAPEUTIC TABLET PO SCH (08:58)
[2020-12-22] MEDS: NALTREXONE HCL 50 MG TABLET PO SCH (08:58)
[2020-12-22] MEDS: THIAMINE 100 MG TABLET PO SCH ×2 (08:58→16:15)
[2020-12-22] MEDS: OMEGA-3/DHA/EPA/FISH OIL 1,000 MG CAPSULE PO SCH (08:58)
[2020-12-22] MEDS: NICOTINE 21 MG/24 HOUR PATCH TD SCH (08:59)
[2020-12-22] MEDS: LORazepam 2 MG TABLET PO PRN ×2 (10:26→16:20)
[2020-12-22 16:45] VITALS: BP 108/77
[2020-12-22] MEDS: MELATONIN 5 MG TABLET PO SCH ×2 (20:14→22:13)
[2020-12-22] MEDS: RisperiDONE 2 MG TABLET PO SCH (20:14)
[2020-12-22] MEDS: DIVALPROEX SODIUM 500 MG ER TABLET PO SCH (20:14)
[2020-12-23 01:15] VITALS: BP 101/74
[2020-12-23 08:26] VITALS: BP 120/73
[2020-12-23] MEDS: FOLIC ACID 1 MG TABLET PO SCH (08:46)
[2020-12-23] MEDS: THIAMINE 100 MG TABLET PO SCH ×2 (08:46→16:04)
[2020-12-23] MEDS: NICOTINE 21 MG/24 HOUR PATCH TD SCH (08:46)
[2020-12-23] MEDS: OMEGA-3/DHA/EPA/FISH OIL 1,000 MG CAPSULE PO SCH (08:46)
[2020-12-23] MEDS: MULTIVITAMINS WITH MINERALS, THERAPEUTIC TABLET PO SCH (08:46)
[2020-12-23] MEDS: NALTREXONE HCL 50 MG TABLET PO SCH (08:46)
[2020-12-23] MEDS: LORazepam 2 MG TABLET PO PRN (14:14)
[2020-12-23 16:18] VITALS: BP 118/68
[2020-12-23] MEDS: DIVALPROEX SODIUM 500 MG ER TABLET PO SCH (21:03)
[2020-12-23] MEDS: MELATONIN 5 MG TABLET PO SCH (21:03)
[2020-12-23] MEDS: RisperiDONE 3 MG TABLET PO SCH (21:03)
[2020-12-24 00:45] VITALS: BP 110/71
[2020-12-24 08:13] VITALS: BP 117/64
[2020-12-24] MEDS: THIAMINE 100 MG TABLET PO SCH ×2 (08:19→16:03)
[2020-12-24] MEDS: FOLIC ACID 1 MG TABLET PO SCH (08:19)
[2020-12-24] MEDS: MULTIVITAMINS WITH MINERALS, THERAPEUTIC TABLET PO SCH (08:19)
[2020-12-24] MEDS: NALTREXONE HCL 50 MG TABLET PO SCH (08:19)
[2020-12-24] MEDS: OMEGA-3/DHA/EPA/FISH OIL 1,000 MG CAPSULE PO SCH (08:19)
[2020-12-24] MEDS: NICOTINE 21 MG/24 HOUR PATCH TD SCH (08:20)
[2020-12-24 16:30] VITALS: BP 102/66
[2020-12-24] MEDS: LORazepam 2 MG TABLET PO PRN (16:42)
[2020-12-24] MEDS: MELATONIN 5 MG TABLET PO SCH (20:25)
[2020-12-24] MEDS: DIVALPROEX SODIUM 500 MG ER TABLET PO SCH (20:25)
[2020-12-24] MEDS: RisperiDONE 3 MG TABLET PO SCH (20:26)
[2020-12-25 00:44] VITALS: BP 100/63
[2020-12-25 08:03] VITALS: BP 102/68
[2020-12-25] MEDS: THIAMINE 100 MG TABLET PO SCH ×2 (08:32→16:09)
[2020-12-25] MEDS: MULTIVITAMINS WITH MINERALS, THERAPEUTIC TABLET PO SCH (08:32)
[2020-12-25] MEDS: NALTREXONE HCL 50 MG TABLET PO SCH (08:32)
[2020-12-25] MEDS: OMEGA-3/DHA/EPA/FISH OIL 1,000 MG CAPSULE PO SCH (08:32)
[2020-12-25] MEDS: NICOTINE 21 MG/24 HOUR PATCH TD SCH (08:34)
[2020-12-25] MEDS: FOLIC ACID 1 MG TABLET PO SCH (08:34)
[2020-12-25 08:40] VITALS: BP 112/74
[2020-12-25] MEDS: LORazepam 2 MG TABLET PO PRN ×2 (08:49→15:40)
[2020-12-25] MEDS: RisperiDONE 1 MG TABLET PO PRN (15:41)
[2020-12-25 16:03] VITALS: BP 111/64
[2020-12-25] MEDS: DIVALPROEX SODIUM 500 MG ER TABLET PO SCH (20:14)
[2020-12-25] MEDS: MELATONIN 5 MG TABLET PO SCH (20:14)
[2020-12-25] MEDS: RisperiDONE 3 MG TABLET PO SCH (20:14)
[2020-12-26 01:15] VITALS: BP 102/67
[2020-12-26 08:18] VITALS: BP 110/75
[2020-12-26] MEDS: NICOTINE 21 MG/24 HOUR PATCH TD SCH (09:00)
[2020-12-26] MEDS: NALTREXONE HCL 50 MG TABLET PO SCH (09:12)
[2020-12-26] MEDS: FOLIC ACID 1 MG TABLET PO SCH (09:12)
[2020-12-26] MEDS: LORazepam 2 MG TABLET PO PRN ×2 (09:12→14:12)
[2020-12-26] MEDS: MULTIVITAMINS WITH MINERALS, THERAPEUTIC TABLET PO SCH (09:12)
[2020-12-26] MEDS: THIAMINE 100 MG TABLET PO SCH ×2 (09:12→16:48)
[2020-12-26] MEDS: OMEGA-3/DHA/EPA/FISH OIL 1,000 MG CAPSULE PO SCH (09:12)
[2020-12-26] MEDS: NICOTINE 14 MG/24 HOUR PATCH TD SCH (11:52)
[2020-12-26 16:07] VITALS: BP 109/65
[2020-12-26] MEDS: RisperiDONE 3 MG TABLET PO SCH (20:09)
[2020-12-26] MEDS: DIVALPROEX SODIUM 500 MG ER TABLET PO SCH (20:09)
[2020-12-26] MEDS: MELATONIN 5 MG TABLET PO SCH (20:09)
[2020-12-27 02:19] VITALS: BP 101/61
[2020-12-27 08:18] VITALS: BP 133/67
[2020-12-27] MEDS: MULTIVITAMINS WITH MINERALS, THERAPEUTIC TABLET PO SCH (08:36)
[2020-12-27] MEDS: LORazepam 2 MG TABLET PO PRN ×2 (08:36→14:53)
[2020-12-27] MEDS: NALTREXONE HCL 50 MG TABLET PO SCH (08:36)
[2020-12-27] MEDS: OMEGA-3/DHA/EPA/FISH OIL 1,000 MG CAPSULE PO SCH (08:36)
[2020-12-27] MEDS: NICOTINE 14 MG/24 HOUR PATCH TD SCH (08:37)
[2020-12-27 17:05] VITALS: BP 119/71
[2020-12-27] MEDS ORDERED: OMEG-135 PO (17:32)
[2020-12-27] MEDS ORDERED: NALT50TA PO (17:32)
[2020-12-27] MEDS ORDERED: DIVA-80 PO (17:32)
[2020-12-27] MEDS ORDERED: MELA5TAB3 PO (17:32)
[2020-12-27] MEDS ORDERED: RISP3TAB44 PO (17:32)
== END 2020-12-27 18:37 | disposition home or self-care (01) | DRG 750 ==
LOC: EMS 18:20 → B3A 22:00
PROVIDERS: ADMIT Psychiatry & Neurology Psychiatry; ATTEND Psychiatry & Neurology Psychiatry
DX: F25.1 Schizoaffective disorder, depressive type (principal); R45.851 Suicidal ideations; Z59.0 Homelessness; Z91.19 Patient's noncompliance with other medical treatment and regimen; Z91.5 Personal history of self-harm; R63.0 Anorexia; Z68.23 Body mass index [BMI] 23.0-23.9, adult; F17.210 Nicotine dependence, cigarettes, uncomplicated; Z88.8 Allergy status to other drugs, medicaments and biological substances; Z87.440 Personal history of urinary (tract) infections; R79.89 Other specified abnormal findings of blood chemistry; F19.10 Other psychoactive substance abuse, uncomplicated; F31.9 Bipolar disorder, unspecified; F12.90 Cannabis use, unspecified, uncomplicated; Z20.822 Contact with and (suspected) exposure to COVID-19
CPT/HCPCS: 80053; 80061; 80164; 83036; 84439; 84443; 85025; 86592; 87426; 90715; 99285; A9575; G0480; J1200; J1630; J2060

== ENCOUNTER 2021-01-07 08:41 | Inpatient (IN) | payer MEDICAID, OTHER ==
[~2021-01-07] VITALS: Ht 162.6 cm; Wt 70.5 kg
[~2021-01-07 08:41] MED LIST changes: -DIVA-112 PO; +DIVA-80 PO; +MELA5TAB3 PO; +NALT50TA PO; +OMEG-135 PO; -RISP0.5T61 PO; +RISP3TAB44 PO
[2021-01-07 10:11] LABS: BASOPHILS % (AUTO) 1.3 % (0.0-2.0); EOSINOPHILS % (AUTO) 2.8 % (1.0-6.0); HEMOGLOBIN 12.3 g/dL (12.0-16.0); LYMPHOCYTES # (AUTO) 2.1 K/uL (1.0-4.8); LYMPHOCYTES % (AUTO) 24.9 % (22.0-44.0); MEAN CORPUSCULAR HEMOGLOBIN 31.2 pg (26.0-34.0); MEAN CORPUSCULAR HGB CONC 35.1 G/dL (31.0-37.0); MEAN CORPUSCULAR VOLUME 89 fL (80-100); MONOCYTES # (AUTO) 0.8 K/uL (0.1-1.0); MONOCYTES % (AUTO) 9.6 % (2.0-9.0); NEUTROPHILS # (AUTO) 5.2 K/uL (1.8-7.7); NEUTROPHILS % (AUTO) 61.4 % (40.0-70.0); PLATELET COUNT (AUTO) 417 K/uL (150-450); RED BLOOD CELL COUNT(AUTO) 3.94 MIL/uL (4.00-5.20); RED CELL DISTRIBUTION WIDTH 13.2 % (11.5-14.5)
[2021-01-07 10:19] LABS: ANION GAP 10 mmol/L (8-16); CARBON DIOXIDE 27 mmol/L (22-29); CHLORIDE 104 mmol/L (98-107); CREATININE 0.94 mg/dL (0.60-1.30); GLOMERULAR FILTR. RATE CALC > 60 mL/min (>60); GLUCOSE,RANDOM 101 mg/dL (70-110); POTASSIUM 4.7 mmol/L (3.5-5.1); SODIUM SERUM 141 mmol/L (136-145); UREA NITROGEN, BLOOD 22 mg/dL (7-18)
[2021-01-07 10:26] LABS: ALANINE AMINOTRANSFERASE 25 U/L (12-78); ALBUMIN 3.7 g/dL (3.4-5.0); ALKALINE PHOSPHATASE 55 U/L (46-116); ASPARTATE AMINOTRANSFERASE 14 U/L (15-37); BILIRUBIN,TOTAL 0.4 mg/dL (0.1-1.0)
[2021-01-07] MEDS ORDERED: RisperiDONE 1 MG TABLET PO ONE (10:30)
[2021-01-07] MEDS ORDERED: LORazepam 2 MG TABLET PO ONE (10:30)
[2021-01-07] MEDS ORDERED: HALOPERIDOL 5 MG TABLET PO ONE (10:30)
[2021-01-07] MEDS ORDERED: MAGNESIUM HYDROXIDE SUSPENSION 30 ML UDCUP PO PRN (11:45)
[2021-01-07] MEDS ORDERED: GuaiFENesin/D-METHORPHAN [SUGAR-FREE] 200-20MG/10 ML SYRUP UDCUP PO PRN (11:45)
[2021-01-07] MEDS ORDERED: MAG HYDROX/AL HYDROX/SIMETH ES 30 ML SUSPENSION UDCUP PO PRN (11:45)
[2021-01-07] MEDS ORDERED: PALIPERIDONE PALMITATE 234 MG/1.5 ML SYRINGE IM ONE (11:45)
[2021-01-07] MEDS ORDERED: PROMETHAZINE HCL 25 MG TABLET PO PRN (11:45)
[2021-01-07] MEDS ORDERED: ZOLPIDEM TARTRATE 10 MG TABLET PO PRN (11:45)
[2021-01-07] MEDS ORDERED: OLANZapine 5 MG RAPDIS TABLET PO PRN (11:45)
[2021-01-07] MEDS ORDERED: HydrOXYzine PAMOATE 50 MG CAPSULE PO PRN (11:45)
[2021-01-07] MEDS ORDERED: LOPERAMIDE HCL 2 MG CAPSULE PO PRN (11:45)
[2021-01-07 12:58] LABS: COVID AG,FIA SOURCE NASOPHARYNGEAL
[2021-01-07 17:00] VITALS: BP 102/57
[2021-01-07] MEDS: THIAMINE 100 MG TABLET PO SCH (17:35)
[2021-01-07] MEDS: RisperiDONE 1 MG TABLET PO PRN (20:44)
[2021-01-07] MEDS: DIVALPROEX SODIUM 500 MG ER TABLET PO SCH (20:44)
[2021-01-07] MEDS: MELATONIN 5 MG TABLET PO SCH (20:44)
[2021-01-07] MEDS: RisperiDONE 2 MG TABLET PO SCH (21:50)
[2021-01-08 04:58] VITALS: BP 118/58
[2021-01-08] MEDS: LORazepam 2 MG TABLET PO PRN ×2 (05:10→13:10)
[2021-01-08] MEDS: ACETAMINOPHEN 325 MG TABLET PO PRN (05:23)
[2021-01-08 08:10] VITALS: BP 126/71
[2021-01-08] MEDS: NALTREXONE HCL 50 MG TABLET PO SCH (08:54)
[2021-01-08] MEDS: OMEGA-3/DHA/EPA/FISH OIL 1,000 MG CAPSULE PO SCH (08:54)
[2021-01-08] MEDS: NICOTINE 21 MG/24 HOUR PATCH TD SCH (08:55)
[2021-01-08] MEDS: FOLIC ACID 1 MG TABLET PO SCH (08:55)
[2021-01-08] MEDS: THIAMINE 100 MG TABLET PO SCH ×2 (08:55→17:00)
[2021-01-08] MEDS: MULTIVITAMINS WITH MINERALS, THERAPEUTIC TABLET PO SCH (08:55)
[2021-01-08] MEDS: RisperiDONE 1 MG TABLET PO PRN (13:30)
[2021-01-08 16:15] VITALS: BP 111/60
[2021-01-08] MEDS: MELATONIN 5 MG TABLET PO SCH (20:22)
[2021-01-08] MEDS: RisperiDONE 2 MG TABLET PO SCH (20:25)
[2021-01-08] MEDS: DIVALPROEX SODIUM 500 MG ER TABLET PO SCH (20:25)
[2021-01-09 06:26] VITALS: BP 117/65
[2021-01-09] MEDS: LORazepam 2 MG TABLET PO PRN ×2 (06:48→12:25)
[2021-01-09] MEDS: FOLIC ACID 1 MG TABLET PO SCH (08:01)
[2021-01-09] MEDS: ACETAMINOPHEN 325 MG TABLET PO PRN (08:01)
[2021-01-09] MEDS: MULTIVITAMINS WITH MINERALS, THERAPEUTIC TABLET PO SCH (08:01)
[2021-01-09] MEDS: RisperiDONE 1 MG TABLET PO PRN ×2 (08:01→21:13)
[2021-01-09] MEDS: NICOTINE 21 MG/24 HOUR PATCH TD SCH (08:02)
[2021-01-09] MEDS: THIAMINE 100 MG TABLET PO SCH ×2 (08:02→16:44)
[2021-01-09] MEDS: NALTREXONE HCL 50 MG TABLET PO SCH (08:02)
[2021-01-09] MEDS: OMEGA-3/DHA/EPA/FISH OIL 1,000 MG CAPSULE PO SCH (08:02)
[2021-01-09 08:13] VITALS: BP 112/78
[2021-01-09] MEDS ORDERED: OMEG-135 PO (13:19)
[2021-01-09] MEDS ORDERED: MELA5TAB3 PO (13:19)
[2021-01-09] MEDS ORDERED: RISP2TAB76 PO (13:19)
[2021-01-09] MEDS ORDERED: DIVA-80 PO (13:19)
[2021-01-09 16:15] VITALS: BP 117/61
[2021-01-09] MEDS ORDERED: RisperiDONE 4 MG TABLET PO SCH (21:00)
[2021-01-09] MEDS: DIVALPROEX SODIUM 500 MG ER TABLET PO SCH (21:13)
[2021-01-09] MEDS: MELATONIN 5 MG TABLET PO SCH (21:46)
[2021-01-10 01:55] VITALS: BP 116/67
[2021-01-10] MEDS: OMEGA-3/DHA/EPA/FISH OIL 1,000 MG CAPSULE PO SCH (08:03)
[2021-01-10] MEDS: NICOTINE 21 MG/24 HOUR PATCH TD SCH (08:03)
[2021-01-10] MEDS: NALTREXONE HCL 50 MG TABLET PO SCH (08:03)
[2021-01-10] MEDS: FOLIC ACID 1 MG TABLET PO SCH (08:03)
[2021-01-10] MEDS: THIAMINE 100 MG TABLET PO SCH (08:03)
[2021-01-10] MEDS: MULTIVITAMINS WITH MINERALS, THERAPEUTIC TABLET PO SCH (08:03)
[2021-01-10 08:44] VITALS: BP 140/69
[2021-01-11] MEDS ORDERED: PALIPERIDONE PALMITATE 156 MG/ML SYRINGE IM ONE (09:00)
== END 2021-01-10 10:10 | disposition home or self-care (01) | DRG 750 ==
LOC: EMS 08:45 → B3A 13:56
PROVIDERS: ADMIT Psychiatry & Neurology Psychiatry; ATTEND Psychiatry & Neurology Psychiatry
DX: F25.0 Schizoaffective disorder, bipolar type (principal); Z59.0 Homelessness; F12.90 Cannabis use, unspecified, uncomplicated; F17.210 Nicotine dependence, cigarettes, uncomplicated; Z20.822 Contact with and (suspected) exposure to COVID-19; F15.10 Other stimulant abuse, uncomplicated; Z55.9 Problems related to education and literacy, unspecified; Z91.030 Bee allergy status; Z88.5 Allergy status to narcotic agent; Z91.013 Allergy to seafood; Z59.9 Problem related to housing and economic circumstances, unspecified; Z65.3 Problems related to other legal circumstances
CPT/HCPCS: 80053; 80164; 85025; 87081; 87426; 99285; A9575; G0480

== ENCOUNTER 2021-08-22 20:31 | Inpatient (IN) | payer MEDICAID, OTHER ==
[~2021-08-22] VITALS: Ht 160 cm; Wt 64.0 kg
[~2021-08-22 20:31] MED LIST changes: -MELA5TAB3 PO; +MELA5TAB40 PO; +RISP2TAB76 PO
[2021-08-22 21:18] LABS: EOSINOPHILS % (AUTO) 0.8 % (1.0-6.0); HEMATOCRIT 37.4 % (36-46); HEMOGLOBIN 13.4 g/dL (12.0-16.0); LYMPHOCYTES # (AUTO) 1.9 K/uL (1.0-4.8); LYMPHOCYTES % (AUTO) 28.8 % (22.0-44.0); MEAN CORPUSCULAR HEMOGLOBIN 31.3 pg (26.0-34.0); MEAN CORPUSCULAR HGB CONC 35.7 G/dL (31.0-37.0); MEAN CORPUSCULAR VOLUME 88 fL (80-100); MONOCYTES # (AUTO) 0.5 K/uL (0.1-1.0); MONOCYTES % (AUTO) 7.8 % (2.0-9.0); NEUTROPHILS % (AUTO) 61.6 % (40.0-70.0); PLATELET COUNT (AUTO) 281 K/uL (150-450); RED BLOOD CELL COUNT(AUTO) 4.27 MIL/uL (4.00-5.20); RED CELL DISTRIBUTION WIDTH 12.6 % (11.5-14.5)
[2021-08-22 21:20] LABS: ANION GAP 8 mmol/L (8-16); CALCIUM, TOTAL 9.3 mg/dL (8.8-10.5); CARBON DIOXIDE 28 mmol/L (22-29); CHLORIDE 104 mmol/L (98-107); CREATININE 1.11 mg/dL (0.60-1.30); GLOMERULAR FILTR. RATE CALC 52 mL/min (>60); GLUCOSE,RANDOM 115 mg/dL (70-110); POTASSIUM 4.2 mmol/L (3.5-5.1); SODIUM SERUM 140 mmol/L (136-145); UREA NITROGEN, BLOOD 17 mg/dL (7-18)
[2021-08-22 21:32] LABS: ALANINE AMINOTRANSFERASE 22 U/L (12-78); ALBUMIN 3.6 g/dL (3.4-5.0); ALKALINE PHOSPHATASE 48 U/L (46-116); ASPARTATE AMINOTRANSFERASE 11 U/L (15-37); BILIRUBIN,TOTAL 0.3 mg/dL (0.1-1.0); HCG,QUANTITATIVE 4 mIU/mL (0-6); TOTAL PROTEIN, SERUM 6.8 g/dL (6.4-8.2)
[2021-08-22 22:11] LABS: AMPHET/METH SCREEN,URINE POSITIVE (NEGATIVE); BARBITURATE SCREEN, URINE NEGATIVE (NEGATIVE); BENZODIAZEPINES SCREEN,URINE NEGATIVE (NEGATIVE); CANNABINOID SCREEN,URINE NEGATIVE (NEGATIVE); COCAINE SCREEN,URINE NEGATIVE (NEGATIVE); METHADONE SCREEN, URINE NEGATIVE (NEGATIVE); OPIATE SCREEN,URINE NEGATIVE (NEGATIVE)
[2021-08-22 22:13] LABS: PHENCYCLIDINE SCREEN,URINE NEGATIVE (NEGATIVE)
[2021-08-22 22:42] LABS: VALPROIC ACID < 3 mcg/mL (50-100)
[2021-08-22] MEDS ORDERED: HALOPERIDOL 5 MG TABLET PO PRN (23:15)
[2021-08-22 23:43] LABS: COVID AG,FIA SOURCE NASOPHARYNGEAL
[2021-08-23 00:49] LABS: CHOL/HDL RATIO 2.5 (3.9-5.7); CHOLESTEROL 162 mg/dL (131-200); HDL CHOLESTEROL 65 mg/dL (40-60); LDL CHOL (CALC.) 80 mg/dL (0-130); TRIGLYCERIDES 84 mg/dL (15-150)
[2021-08-23 02:54] LABS: APPEARANCE,URINE CLOUDY (CLEAR); BILIRUBIN,URINE PRELIM. POSITIVE (NEGATIVE); GLUCOSE, URINE (UA) NEGATIVE (NEGATIVE); KETONES,URINE NEGATIVE (NEGATIVE); LEUKOCYTE ESTERASE ,URINE TRACE (NEGATIVE); NITRATE,URINE NEGATIVE (NEGATIVE); OCCULT BLOOD,URINE NEGATIVE (NEGATIVE); PROTEIN,URINE NEGATIVE (NEGATIVE)
[2021-08-23 02:55] LABS: BACTERIA,URINE Few /HPF (None Seen); RBC,URINE 0-2 /HPF (0-2)
[2021-08-23] MEDS ORDERED: ONDANSETRON HCL 4 MG TABLET PO PRN (06:45)
[2021-08-23] MEDS ORDERED: MAG HYDROX/AL HYDROX/SIMETH ES 30 ML SUSPENSION UDCUP PO PRN (06:45)
[2021-08-23] MEDS ORDERED: MAGNESIUM HYDROXIDE SUSPENSION 30 ML UDCUP PO PRN (06:45)
[2021-08-23] MEDS ORDERED: PETROLATUM,WHITE 28 GM JELLY TP PRN (06:45)
[2021-08-23] MEDS ORDERED: CloNIDine HCL 0.1 MG TABLET PO PRN (06:45)
[2021-08-23] MEDS ORDERED: IBUPROFEN 400 MG TABLET PO PRN (06:45)
[2021-08-23] MEDS ORDERED: ALBUTEROL SULFATE HFA 90 MCG/PUFF 8 GM INHALER IH PRN (06:45)
[2021-08-23] MEDS ORDERED: ACETAMINOPHEN 325 MG TABLET PO PRN (06:45)
[2021-08-23] MEDS ORDERED: DOCUSATE SODIUM 100 MG CAPSULE PO PRN (06:45)
[2021-08-23] MEDS ORDERED: GuaiFENesin/D-METHORPHAN [SUGAR-FREE] 200-20MG/10 ML SYRUP UDCUP PO PRN (06:45)
[2021-08-23] MEDS ORDERED: LOPERAMIDE HCL 2 MG CAPSULE PO PRN (06:45)
[2021-08-23] MEDS ORDERED: NICOTINE 14 MG/24 HOUR PATCH TD ONE (08:00)
[2021-08-23] MEDS: OMEGA-3/DHA/EPA/FISH OIL 1,000 MG CAPSULE PO SCH (09:00)
[2021-08-23] MEDS: LORazepam 2 MG TABLET PO PRN (10:39)
[2021-08-23] MEDS ORDERED: MELATONIN 5 MG TABLET PO SCH (21:00)
[2021-08-23] MEDS: MELATONIN 5 MG TABLET PO SCH (21:00)
[2021-08-24] MEDS: LORazepam 2 MG TABLET PO PRN ×2 (08:09→13:58)
[2021-08-24] MEDS: OMEGA-3/DHA/EPA/FISH OIL 1,000 MG CAPSULE PO SCH (08:16)
[2021-08-24] MEDS: NICOTINE 14 MG/24 HOUR PATCH TD PRN (08:16)
[2021-08-24] MEDS: ZOLPIDEM TARTRATE 10 MG TABLET PO PRN (20:16)
[2021-08-24] MEDS: MELATONIN 5 MG TABLET PO SCH (21:00)
[2021-08-25] MEDS: LORazepam 2 MG TABLET PO PRN ×3 (04:07→20:22)
[2021-08-25] MEDS: OMEGA-3/DHA/EPA/FISH OIL 1,000 MG CAPSULE PO SCH (09:00)
[2021-08-25] MEDS: NICOTINE 14 MG/24 HOUR PATCH TD PRN (12:57)
[2021-08-25 16:21] VITALS: BP 111/64
[2021-08-25] MEDS: MELATONIN 5 MG TABLET PO SCH (21:00)
[2021-08-26] MEDS: ZOLPIDEM TARTRATE 10 MG TABLET PO PRN (00:16)
[2021-08-26 01:05] VITALS: BP 114/75
[2021-08-26] MEDS: LORazepam 2 MG TABLET PO PRN (06:48)
[2021-08-26 08:11] VITALS: BP 123/78
[2021-08-26] MEDS: NICOTINE 14 MG/24 HOUR PATCH TD PRN (08:12)
[2021-08-26] MEDS: OMEGA-3/DHA/EPA/FISH OIL 1,000 MG CAPSULE PO SCH (08:12)
[2021-08-26] MEDS ORDERED: RisperiDONE 2 MG TABLET PO SCH (12:00)
[2021-08-26] MEDS ORDERED: DIVALPROEX SODIUM 500 MG DR TABLET PO SCH (12:00)
[2021-08-26] MEDS ORDERED: DIVA-112 PO (12:27)
[2021-08-26] MEDS ORDERED: RISP2TAB45 PO (12:28)
[2021-08-26] MEDS ORDERED: MELA5TAB40 PO (12:29)
[2021-08-26] MEDS ORDERED: OMEG-135 PO (12:29)
== END 2021-08-26 14:55 | disposition home or self-care (01) | DRG 750 ==
LOC: EMS 20:33 → B3A 08-25 12:20
PROVIDERS: ADMIT Psychiatry & Neurology Child & Adolescent Psychiatry; ATTEND Psychiatry & Neurology Child & Adolescent Psychiatry
DX: F25.1 Schizoaffective disorder, depressive type (principal); R45.851 Suicidal ideations; Z59.00 Homelessness unspecified; F17.210 Nicotine dependence, cigarettes, uncomplicated; G47.00 Insomnia, unspecified; F31.9 Bipolar disorder, unspecified; E78.5 Hyperlipidemia, unspecified; F41.9 Anxiety disorder, unspecified; Z20.822 Contact with and (suspected) exposure to COVID-19; F12.90 Cannabis use, unspecified, uncomplicated; F15.90 Other stimulant use, unspecified, uncomplicated; Z91.013 Allergy to seafood; Z88.5 Allergy status to narcotic agent; Z91.030 Bee allergy status; Z79.899 Other long term (current) drug therapy
CPT/HCPCS: 80053; 80061; 80164; 81001; 84702; 85025; 99285; G0480; Q9967